=== PATIENT | female | born 1965 | race African-American/Black ===

== ENCOUNTER 2016-10-22 07:37 | Emergency (ER) | payer OTHER ==
[~2016-10-22] VITALS: Ht 162.6 cm; Wt 56.5 kg
[~2016-10-22 07:37] MED LIST: 1-ME1LIQ PO; CLON.1 PO; KCL20 PO; PRAV20 PO; PRED10 PO
[2016-10-22 07:39] VITALS: BP 166/112; PULSE 97; RESP 18; TEMP 99.3; O2SAT 98
[2016-10-22 07:56] VITALS: BP 163/106; TEMP 99.3
--- NOTE | 2016-10-22 08:10 | PD ---
HPI Chief Complaint: Back/ Neck Pain or Injury Time Seen by Provider: 07:59 Travel History International Travel<30 days: No Contact w/Intl Traveler<30days: No Traveled to known affect area: No History of Present Illness HPI 51-year-old female presents to the emergency department with complaint of right lower back spasms this started last night. Denies injury, heavy lifting. Reports history of chronic back pain for about 10-15 years. Denies new or recent injury. Denies paresthesias, loss of sensation, decreased range of motion of decreased strength to bilateral lower extremities. Denies IV drug use or cancer. Reports subjective fever last night. Has not taken her temperature cannot reported MAXIMUM TEMPERATURE. Denies nausea, vomiting. Denies dysuria, urgency, frequency, hematuria. Denies encopresis, incontinence , saddle anesthesias. Has not taken any medications or tried any treatments to alleviate her symptoms. Pain is aggravated with movement. Allergies to aspirin and Motrin. Dr. BarlowNish his primary care provider and she has not followed up with her in approximately one year. Patient reports history of hypertension and stopped taking her medications in January 2016 on her own. Patient's blood pressure is elevated in the ER and she denies symptoms of hypertension. Has no other medical complaints. No other modifying factors or associated signs and symptoms. PFSH Past Medical History Autoimmune Disease: No Blood Disorders: No Cancer: No Cardiovascular Problems: No Diabetes: No Diminished Hearing: No Endocrine: No Gastrointestinal Disorders: Yes Genitourinary: No Hypertension: Yes Immune Disorder: No Musculoskeletal: No Neurologic: Yes Psychiatric: No Reproductive: No Respiratory: No Migraines: Yes Thyroid Disease: No Ectopic : Yes Past Surgical History Gynecologic Surgery: Yes (D&C; ECTOPIC SURGERY) Other Surgery: Yes Social History Alcohol Use: Yes Tobacco Use: Yes Substance Use: No Allergies-Medications (Allergen,Severity, Reaction): Coded Allergies: Aspirin (Verified Allergy, Severe, UPSET STOMACH, 10/22/16) Motrin (Verified Adverse Reaction, Severe, "CONNOLLY STOMACH", 10/22/16) Reported Meds & Prescriptions Reported Meds & Active Scripts Active Review of Systems Except as stated in HPI: all other systems reviewed are Neg Physical Exam Narrative GENERAL: Well-nourished, well-developed female patient, in no acute distress; low-grade temperature 99.3, nontoxic-appearing SKIN: Warm and dry. HEAD: Atraumatic. Normocephalic. EYES: Pupils equal and round. No scleral icterus. No injection or drainage. ENT: Mucosa pink and moist. Airway patent. NECK: Trachea midline. CARDIOVASCULAR: Regular rate and rhythm. No murmur appreciated. RESPIRATORY: No accessory muscle use. Breath sounds clear and equal bilaterally. GASTROINTESTINAL: Abdomen soft, non-tender, nondistended. Positive bowel sounds. No hepato-splenomegaly, or palpable masses. No guarding. MUSCULOSKELETAL: Bilateral lower extremities supple and non-tense with 2+ pedal pulses and sensory intact; with full range of motion and 5/5 strength. 2 + DTRs bilaterally. Active dorsiflexion and extension of bilateral feet. Right straight leg raise is right for low back pain. Ambulatory in room with normal gait. Sitting up in bed at 90. No obvious deformities. No clubbing. No cyanosis. No edema. BACK: Right CVA tenderness. No midline point tenderness on palpation of the lumbar spine or thoracic spine. Tenderness on palpation of right lumbar iliosacral area. No obvious deformities. NEUROLOGICAL: Awake and alert. Oriented 3. No obvious cranial nerve deficits. Motor grossly within normal limits. Normal speech. Moves all extremities. 5/5 strength to all extremities. Sensory intact. PSYCHIATRIC: Appropriate mood and affect; insight and judgment normal. Data Data Last Documented VS Vital Signs Date Time Temp Pulse Resp B/P Pulse Ox O2 Delivery O2 Flow Rate FiO2 10/22/16 07:56 99.3 163/106 10/22/16 07:39 97 18 98 Room Air Orders Urinalysis - C+S If Indicated (10/22/16 07:57) Labs Laboratory Tests Test 10/22/16 08:00 Urine Color YELLOW Urine Turbidity HAZY Urine pH 5.5 Urine Specific [place] 1.021 Urine Protein TRACE mg/dL Urine Glucose (UA) NEG mg/dL Urine Ketones TRACE mg/dL Urine Occult Blood SMALL Urine Nitrite NEG Urine Bilirubin NEG Urine Urobilinogen LESS THAN 2.0 MG/DL Urine Leukocyte Esterase TRACE Urine RBC 2 /hpf Urine WBC 3 /hpf Urine Squamous Epithelial 4 /hpf Cells Urine Bacteria RARE /hpf Urine Mucus FEW /lpf Microscopic Urinalysis Comment CULT NOT INDICATED MDM Medical Decision Making Medical Screen Exam Complete: Yes Emergency Medical Condition: Yes Medical Record Reviewed: Yes Differential Diagnosis Acute exacerbation of chronic low back pain, muscle spasms, pyelonephritis, UTI Narrative Course 51-year-old female with complaint of right-sided lower back muscle spasms. She does have chronic history of back pain. Denies new or recent injury. Denies IV drug use or cancer. Denies encopresis, incontinence, saddle anesthesias. Patient has low-grade temperature 99.3 in the ER. Reports subjective fever last night. Denies vomiting. Although the patient denies urinary complaints I will check a urinalysis to rule out UTI. Patient has history of hypertension and stopped taking her medications in January 2016. Dr. Anna is her primary care provider and she has not followed up in approximately one year. Patient is a simple medical hypertension at this time. Instructed patient to follow up with primary care provider in regards to elevated blood pressure. Urinalysis ordered. 0850: Urinalysis without signs of infection. Tylenol and Robaxin administered in the ER. Robaxin prescribed for home. [facility] information sheet provided. Instructed patient to follow up with primary care provider. Patient verbalizes understanding and agreement with treatment plan. Patient is medically cleared and stable for discharge. Discussed reasons to return to the emergency department. Patient agrees with treatment plan. The patients vital signs are stable and the patient is stable for outpatient follow-up and treatment. Patient discharged home, stable and in no acute distress. Diagnosis Primary Impression: Muscle spasm of back Referrals: [facility] Primary Care Physician Patient Instructions: General Instructions, Muscle Spasm (ED) Departure Forms: Tests/Procedures, Work Release Enter return to work date: Oct 23, 2016 Additional Instructions: Tylenol as directed and as needed for pain Robaxin as prescribed and as needed for muscle spasms Heating pad and/or ice to affected area to reduce pain Avoid aggravating activities; increase activity as tolerated Follow-up with primary care provider or [facility] Return to emergency department immediately with worsening of symptoms Med/Other Pt SpecificInfo: Prescription(s) given Scripts Methocarbamol (Robaxin)500 Mg [id number] Mg PO QID PRN (MUSCLE SPASM) #30 TAB Ref 0 Prov:Laurie Champagne 10/22/16 Disposition: DISCHARGE HOME Condition: Stable Laurie Champagne Oct 22, 2016 08:10
[2016-10-22 08:42] LABS: BACTERIA, URINE RARE /hpf; BLOOD, URINE SMALL (NEG); GLUCOSE,URINE NEG (NEG); KETONE, URINE TRACE mg/dL (NEG); MUCUS URINE FEW /lpf (OCC); NITRITE,URINE NEG (NEG); PH, URINE 5.5 (5.0-8.5); SQUAMOUS EPITHELIAL CELL URINE 4 /hpf (0-5); URINE COLOR YELLOW (YELLW/STRAW)
[2016-10-22 08:43] LABS: COMMENT (UR) CULT NOT INDICATED; CULTURE IF INDICATED CULT NOT INDICATED
[2016-10-22] MEDS ORDERED: ROBA500T PO (08:49)
[2016-10-22] MEDS ORDERED: METHOCARBAMOL 500 MG TAB PO ONE (09:00)
[2016-10-22] MEDS ORDERED: ACETAMINOPHEN 325 MG TAB PO ONE (09:00)
== END 2016-10-22 09:27 | disposition home or self-care (01) ==
LOC: NEPK 07:37
DX: M62.830 Muscle spasm of back (principal); I10 Essential (primary) hypertension; Z88.6 Allergy status to analgesic agent; Z72.0 Tobacco use
CPT/HCPCS: 81001; 99283

== ENCOUNTER 2017-01-11 15:57 | Emergency (ER) | payer SELFPAY ==
[~2017-01-11] VITALS: Ht 162.6 cm; Wt 57.0 kg
[~2017-01-11 15:57] MED LIST changes: -1-ME1LIQ PO; -CLON.1 PO; -KCL20 PO; -PRAV20 PO; -PRED10 PO; +ROBA500T PO
[2017-01-11 15:58] VITALS: BP 179/114; PULSE 126; RESP 18; TEMP 99.8; O2SAT 95
--- NOTE | 2017-01-11 18:07 | PD ---
HPI Chief Complaint: Musculoskeletal Complaint Time Seen by Provider: 18:02 Travel History International Travel<30 days: No Contact w/Intl Traveler<30days: No Traveled to known affect area: No History of Present Illness HPI 51-year-old female presents to the emergency department for evaluation right foot pain since yesterday. Exacerbated with ambulation. She does not recall any injury. The pain does not radiate anywhere. Rates it 6 out of 10. Has not taken anything for it. Denies any alteration in sensation. Has no other symptoms to report. PFSH Past Medical History Autoimmune Disease: No Blood Disorders: No Cancer: No Cardiovascular Problems: No Diabetes: No Diminished Hearing: No Endocrine: No Gastrointestinal Disorders: Yes Genitourinary: No Hypertension: Yes Immune Disorder: No Musculoskeletal: No Neurologic: Yes Psychiatric: No Reproductive: No Respiratory: No Migraines: Yes Thyroid Disease: No ?: Unknown Ectopic : Yes Past Surgical History Gynecologic Surgery: Yes (D&C; ECTOPIC SURGERY) Other Surgery: Yes Social History Alcohol Use: Yes Tobacco Use: Yes Substance Use: No Allergies-Medications (Allergen,Severity, Reaction): Coded Allergies: aspirin (Unverified Allergy, Severe, UPSET STOMACH, 11/10/16) ibuprofen (Unverified Adverse Reaction, Severe, "CONNOLLY STOMACH", 11/10/16) Reported Meds & Prescriptions Reported Meds & Active Scripts Active Robaxin (Methocarbamol) 500 Mg Tab 500 Mg PO QID PRN Review of Systems Except as stated in HPI: all other systems reviewed are Neg Physical Exam Narrative GENERAL: Well-nourished female patient, ambulatory with an antalgic gait, no acute distress. SKIN: Focused skin assessment warm/dry. HEAD: Atraumatic. Normocephalic. EYES: Pupils equal and round. No scleral icterus. No injection or drainage. ENT: No nasal bleeding or discharge. Mucous membranes pink and moist. NECK: Trachea midline. No JVD. CARDIOVASCULAR: Regular rate and rhythm. No murmur appreciated. RESPIRATORY: No accessory muscle use. Clear to auscultation. Breath sounds equal bilaterally. MUSCULOSKELETAL: No obvious deformities. No clubbing. No cyanosis. No edema. Tenderness with palpation over the distal aspect of the right fourth metacarpal. No deformity. Distal pulses palpable. Cap refill within normal limits. NEUROLOGICAL: Awake and alert. No obvious cranial nerve deficits. Motor grossly within normal limits. Normal speech. PSYCHIATRIC: Appropriate mood and affect; insight and judgment normal. Data Data Last Documented VS Vital Signs Date Time Temp Pulse Resp B/P (MAP) Pulse Ox O2 Delivery O2 Flow Rate FiO2 01/11/17 15:58 99.8 126 18 179/114 (135) 95 Orders Orders Foot, Complete ([id number]) (01/11/17 ) MDM Medical Decision Making Medical Screen Exam Complete: Yes Emergency Medical Condition: Yes Medical Record Reviewed: Yes Differential Diagnosis Contusion versus fracture versus sprain versus dislocation Narrative Course 51-year-old female presents to emergency department for evaluation of right foot pain. Patient appears without distress however she does have an antalgic gait and tenderness of the fourth metatarsal. X-ray imaging is ordered. It is without acute bony normality. Patient will be discharged at this time to follow -up with lunchroom aide. She agrees to return immediately with any acute worsening symptoms. Diagnosis Primary Impression: Right foot pain Referrals: [employer] Primary Care Physician Patient Instructions: Foot Contusion (ED), General Instructions Additional Instructions: Ice and elevate to reduce pain and swelling Follow-up with a lunchroom aide Follow-up with primary care provider Tylenol as directed on the package as needed for pain Return immediately with any acute worsening of symptoms Med/Other Pt SpecificInfo: No Change to Meds Disposition: 01 DISCHARGE HOME Condition: Stable Whitney Wang Jan 11, 2017 18:07
--- NOTE | 2017-01-11 18:28 | RADRPT ---
EXAM DATE/TIME: 01/11/2017 18:17 [place] COMPARISON: No previous studies available for comparison. INDICATIONS : Right distal foot pain, fell MEDICAL HISTORY : None. SURGICAL HISTORY : None. ENCOUNTER: Initial ACUITY: 2 days PAIN SCORE: 5/10 LOCATION: Right Foot FINDINGS: Three view examination of the right foot demonstrates no soft tissue swelling, dislocation, or fractu re. The tarsal bones appear intact. The interphalangeal and metatarsophalangeal joints are intact. The calcaneus is intact. Bony mineralization is normal. There is hallux valgus with minimal degene rative change of the first metatarsophalangeal joint CONCLUSION: No acute bony injury Bg Fitzpatrick MD on January 11, 2017 at 18:26 Board Certified Radiologist. This report was verified electronically.
== END 2017-01-11 18:47 | disposition home or self-care (01) ==
LOC: NEPK 15:57
DX: M79.671 Pain in right foot (principal); I10 Essential (primary) hypertension; Z72.0 Tobacco use
CPT/HCPCS: 73630; 99283